=== PATIENT | male | born 1960 | race Asian ===

== ENCOUNTER 2018-06-07 21:14 | Emergency (ER) | payer MEDICAID, OTHER | END 2018-06-07 22:07 | disposition home or self-care (01) | LOC: SCSER 21:14 | DX: S01.81XA Laceration without foreign body of other part of head, initial encounter (principal); W22.8XXA Striking against or struck by other objects, initial encounter | CPT/HCPCS: 12013 ==

== ENCOUNTER 2021-01-20 11:30 | Day surgery (SDC) | payer BC ==
[2021-01-20] MEDS ORDERED: Proparacaine 0.5% Opth 15 ML BOT EA EYE SCH (11:45)
== END 2021-01-20 13:20 | disposition home or self-care (01) ==
LOC: SDC 11:30
PROVIDERS: ATTEND Ophthalmology
PROC: 089C3ZZ Drainage of Right Iris, Percutaneous Approach (ICD-10-PCS; principal; 2021-01-20)
PROC: 089D3ZZ Drainage of Left Iris, Percutaneous Approach (ICD-10-PCS; principal; 2021-01-20)
DX: H53.8 Other visual disturbances (principal); I10 Essential (primary) hypertension; Z79.899 Other long term (current) drug therapy